=== PATIENT | male | born 1965 | race Caucasian/White ===

== ENCOUNTER 2018-01-16 10:54 | Emergency (ER) | payer BC ==
[2018-01-16] MEDS ORDERED: Sodium Chloride 0.9% 1,000 ML IV ONE (11:21)
[2018-01-16] MEDS ORDERED: Ketorolac 30 MG/ML SDV IVPUSH ONE (11:21)
[2018-01-16] MEDS ORDERED: Sodium Chloride 0.9% 10 ML Syringe FLUSH PRN (11:21)
[2018-01-16] MEDS ORDERED: Morphine 2 MG/ML Syringe IVPUSH ONE (11:21)
[2018-01-16] MEDS ORDERED: Sodium Chloride 0.9% 2.5 ML Syringe FLUSH PRN (11:21)
--- NOTE | 2018-01-16 11:31 | EDM.PDOC ---
ED HPI GENERAL MEDICAL PROBLEM - General Chief Complaint: Flank Pain Stated Complaint: LOW BACK PAIN Time Seen by Provider: 01/16/18 10:59 - History of Present Illness INITIAL COMMENTS - FREE TEXT/NARRATIVE: HISTORY AND PHYSICAL: History of present illness: The patient is a 52-year-old male who presents with complaints of right flank pain that started gradually this morning in a spasm-like fashion and is now continuous. Pain is located at his right lower back and does not radiate to his abdomen and he has no nausea or vomiting no hematuria dysuria or frequency. The patient says that he had a kidney stone on the right about a month ago that he was diagnosed with any passed spontaneously and this does feels similarly but the pain is worse. He's had no trauma to the area the pain does not radiate to his leg and he has no midline back pain. The patient says that he did not follow -up with a urologist. He did not take anything at home for the pain. He is currently not nauseated and has had no fevers chills chest pain or shortness of breath. He says the pain did not come on suddenly but it was gradual and then went away and then has spasmed in presentation and is now constant. He feels the pain is very deep. He has no testicular pain or swelling. The patient says he has a history of drinking a lot of soda in the past but has cut back significantly since the last kidney stone one month ago Review of systems: As per history of present illness and below otherwise all systems reviewed and negative. Past medical history: As per history of present illness and as reviewed below otherwise noncontributory. Surgical history: As per history of present illness and as reviewed below otherwise noncontributory. Social history: No reported history of drug or alcohol abuse. Family history: As per history of present illness and as reviewed below otherwise noncontributory. Physical exam: General: Well-developed well-nourished man who is nontoxic and vital signs are noted by me. He moves easily in the ED HEENT: Atraumatic, normocephalic, negative for conjunctival pallor or scleral icterus, mucous membranes moist, throat clear, neck supple, nontender, trachea midline. Lungs: Clear to auscultation, breath sounds equal bilaterally, chest nontender. Heart: S1S2, regular rate and rhythm no overt murmurs Abdomen: Soft, nondistended, nontender. Negative for masses or hepatosplenomegaly. Negative for costovertebral tenderness. His absolute no tenderness on palpation of the abdomen and I cannot reproduce the pain. Bowel sounds are hypoactive. Pelvis: Stable nontender. Genitourinary: Deferred. Rectal: Deferred. Extremities: Atraumatic, negative for cords or calf pain. Neurovascular unremarkable. Neuro: Awake, alert, oriented. Cranial nerves II through XII unremarkable. Cerebellum unremarkable. Motor and sensory unremarkable throughout. Exam nonfocal. Back: There are no midline step-offs tenderness or defects of the thoracic or lumbar spine no CVA tenderness and on palpation of the paraspinal musculature at the right lumbar and flank area I cannot reproduce the pain. 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 Remainder of his CT just shows that he is constipated which he is aware of. He seems somewhat annoyed with the test results but I will give him referral for primary care and urology to have further evaluation of this cystic mass on the left kidney. I told him that this may be musculoskeletal and that he can follow up with primary care. Impression: Right flank pain stable etiology unclear Definitive disposition and diagnosis as appropriate pending reevaluation and review of above. Right Flank Pain Score (Numeric/FACES): 8 - Related Data Allergies Allergy/AdvReac Type Severity Reaction Status Date / Time No Known Allergies Allergy Verified 01/16/18 11:09 Home Meds: Home Meds Cilostazol 100 mg PO BID 01/16/18 [History] Metoprolol Succinate 25 mg PO BID 01/16/18 [History] Simvastatin 10 mg PO DAILY 01/16/18 [History] Past Medical History Cardiovascular History: Reports: Blood Clots/VTE/DVT, High Cholesterol, Hypertension - Infectious Disease History Infectious Disease History: Reports: Chicken Pox Social & Family History - Family History Family Medical History: Noncontributory - Tobacco Use Smoking Status *Q: Former Smoker Used Tobacco, but Quit: Yes Month/Year Tobacco Last Used: 5 - Recreational Drug Use Recreational Drug Use: No ED ROS GENERAL - Review of Systems Review Of Systems: ROS reveals no pertinent complaints other than HPI. ED EXAM, GENERAL - Physical Exam Exam: See Below (see Dictation) Course - Vital Signs Last Recorded V/S: Last Vital Signs Temp 35.9 C 01/16/18 12:29 Pulse 66 01/16/18 12:29 Resp 16 01/16/18 12:29 BP 146/75 H 01/16/18 12:29 Pulse Ox 97 01/16/18 12:29 - Orders/Labs/Meds Orders: Active Orders 24 hr Category Date Time Status Abdomen Pelvis wo Cont [CT] Stat Exams 01/16/18 11:21 Taken CULTURE URINE [RM] Stat Lab 01/16/18 12:15 Ordered UA W/MICROSCOPIC [URIN] Stat Lab 01/16/18 12:15 Ordered Sodium Chloride 0.9% [Saline Flush] Med 01/16/18 11:21 Active 10 ml FLUSH ASDIRECTED PRN Sodium Chloride 0.9% [Saline Flush] Med 01/16/18 11:21 Active 2.5 ml FLUSH ASDIRECTED PRN Saline Lock Insert [OM.PC] Stat Oth 01/16/18 11:20 Ordered Medication Orders Sodium Chloride (Saline Flush) 10 ml FLUSH ASDIRECTED PRN PRN Reason: Keep Vein Open Sodium Chloride (Saline Flush) 2.5 ml FLUSH ASDIRECTED PRN PRN Reason: Keep Vein Open Labs: Laboratory Tests 01/16/18 01/16/18 01/16/18 Range/Units 11:35 11:35 12:15 WBC 9.39 (4.0-11.0) K/uL RBC 4.42 L (4.50-5.90) M/uL Hgb 13.9 (13.0-17.0) g/dL Hct 39.7 (38.0-50.0) % MCV 89.8 (80.0-98.0) fL MCH 31.4 (27.0-32.0) pg MCHC 35.0 (31.0-37.0) g/dL RDW Std Deviation 41.1 (28.0-62.0) fl RDW Coeff of Hailey 13 (11.0-15.0) % Plt Count 279 (150-400) K/uL MPV 9.90 (7.40-12.00) fL Neut % (Auto) 55.7 (48.0-80.0) % Lymph % (Auto) 30.8 (16.0-40.0) % [place]ff[place] % (Auto) 8.1 (0.0-15.0) % Eos % (Auto) 4.3 (0.0-7.0) % Baso % (Auto) 1.1 (0.0-1.5) % Neut # (Auto) 5.2 (1.4-5.7) K/uL Lymph # (Auto) 2.9 H (0.6-2.4) K/uL [place]ffie # (Auto) 0.8 (0.0-0.8) K/uL Eos # (Auto) 0.4 (0.0-0.7) K/uL Baso # (Auto) 0.1 (0.0-0.1) K/uL Nucleated RBC % 0.0 /100WBC Nucleated RBCs # 0 K/uL Sodium 136 (136-148) mmol/L Potassium 4.0 (3.5-5.1) mmol/L Chloride 103 (98-107) mmol/L Carbon Dioxide 26.6 (21.0-32.0) mmol/L BUN 16 (7.0-18.0) mg/dL Creatinine 1.2 (0.8-1.3) mg/dL Est Cr Clr Drug Dosing 64.98 mL/min Estimated GFR (MDRD) > 60.0 ml/min Glucose 94 (74-106) mg/dL Calcium 9.2 (8.5-10.1) mg/dL Total Bilirubin 0.3 (0.2-1.0) mg/dL AST 39 H (15-37) IU/L ALT 58 (14-63) IU/L Alkaline Phosphatase 98 (46-116) U/L Total Protein 8.5 H (6.4-8.2) g/dL Albumin 3.8 (3.4-5.0) g/dL Globulin 4.7 H (2.0-3.5) g/dL Albumin/Globulin Ratio 0.8 L (1.3-2.8) Urine Color YELLOW Urine Appearance CLEAR Urine pH 5.5 (5.0-8.0) Ur Specific [place] >= 1.030 (1.001-1.035) Urine Protein NEGATIVE (NEGATIVE) mg/dL Urine Glucose (UA) NEGATIVE (NEGATIVE) mg/dL Urine Ketones NEGATIVE (NEGATIVE) mg/dL Urine Occult Blood NEGATIVE (NEGATIVE) Urine Nitrite NEGATIVE (NEGATIVE) Urine Bilirubin NEGATIVE (NEGATIVE) Urine Urobilinogen 0.2 (<2.0) EU/dL Ur Leukocyte Esterase NEGATIVE (NEGATIVE) Urine RBC 0-1 (0-2/HPF) Urine WBC 0-1 (0-5/HPF) Ur Epithelial Cells RARE (NONE-FEW) Urine Bacteria RARE (NEGATIVE) Meds: Medications Generic Name Dose Route Start Last Admin Trade Name Freq PRN Reason Stop Dose Admin Sodium Chloride 10 ml 01/16/18 11:21 Saline Flush FLUSH ASDIRECTED PRN Keep Vein Open Sodium Chloride 2.5 ml 01/16/18 11:21 Saline Flush FLUSH ASDIRECTED PRN Keep Vein Open Discontinued Medications Generic Name Dose Route Start Last Admin Trade Name Freq PRN Reason Stop Dose Admin Sodium Chloride 1,000 mls @ 999 mls/hr 01/16/18 11:21 01/16/18 11:43 Normal Saline IV 01/16/18 12:21 999 mls/hr STAT ONE Administration Ketorolac Tromethamine 30 mg 01/16/18 11:21 01/16/18 11:44 Toradol IVPUSH 01/16/18 11:22 30 mg ONETIME ONE Administration Morphine Sulfate 2 mg 01/16/18 11:21 01/16/18 11:44 Morphine IVPUSH 01/16/18 11:22 2 mg ONETIME ONE Administration Departure - Departure Time of Disposition: 13:37 Disposition: Home, Self-Care 01 Condition: Good Clinical Impression: Right flank pain, Cyst of left kidney - Discharge Information Referrals: PCP,None [Primary Care Provider] - Forms: ED Department Discharge Additional Instructions: The following information is given to patients seen in the emergency department who are being discharged to home. This information is to outline your options for follow-up care. We provide all patients seen in our emergency department with a follow-up referral. The need for follow-up, as well as the timing and circumstances, are variable depending upon the specifics of your emergency department visit. If you don't have a primary care physician on staff, we will provide you with a referral. We always advise you to contact your personal physician following an emergency department visit to inform them of the circumstance of the visit and for follow-up with them and/or the need for any referrals to a consulting specialist. The emergency department will also refer you to a specialist when appropriate. This referral assures that you have the opportunity for followup care with a specialist. All of these measure are taken in an effort to provide you with optimal care, which includes your followup. Under all circumstances we always encourage you to contact your private physician who remains a resource for coordinating your care. When calling for followup care, please make the office aware that this follow-up is from your recent emergency room visit. If for any reason you are refused follow-up, please contact the [facility] emergency department at and ask to speak to the emergency department charge nurse. [facility] Primary care- Internal Medicine and [facility] [address] [place] [phone] [facility] Specialty Care-Urology [address] [place] [phone] Push hydration and use medication as needed and directed for pain. Please call and schedule a follow-up appointment as you will need an outpatient ultrasound of your left kidney to follow the cysts that are there. Return to ER as needed and as discussed. - My Orders Last 24 Hours: My Active Orders 01/16/18 11:20 Saline Lock Insert [OM.PC] Stat 01/16/18 11:21 Abdomen Pelvis wo Cont [CT] Stat Sodium Chloride 0.9% [Saline Flush] 10 ml FLUSH ASDIRECTED PRN Sodium Chloride 0.9% [Saline Flush] 2.5 ml FLUSH ASDIRECTED PRN 01/16/18 12:15 CULTURE URINE [RM] Stat UA W/MICROSCOPIC [URIN] Stat - Assessment/Plan Last 24 Hours: My Active Orders 01/16/18 11:20 Saline Lock Insert [OM.PC] Stat 01/16/18 11:21 Abdomen Pelvis wo Cont [CT] Stat Sodium Chloride 0.9% [Saline Flush] 10 ml FLUSH ASDIRECTED PRN Sodium Chloride 0.9% [Saline Flush] 2.5 ml FLUSH ASDIRECTED PRN 01/16/18 12:15 CULTURE URINE [RM] Stat UA W/MICROSCOPIC [URIN] Stat
[2018-01-16 12:19] LABS: CHLORIDE,CL 103 mmol/L (98-107); SODIUM,NA 136 mmol/L (136-148)
--- NOTE | 2018-01-16 16:30 | CT ---
EXAM DATE: 01/16/18 PATIENT'S AGE: 52 Patient: LOU SMALL Facility: [place], [place] Site . Site : [id number] Study: CT Abdomen/Pelvis [id number]/[id number] 12:43:08 PM Ordering Physician: Venita Skelton Final Report: INDICATION: Right flank pain. COMPARISON: None. TECHNIQUE: CT abdomen and pelvis without intravenous or oral contrast; coronal and sagittal reformats. FINDINGS: No abnormal intra pulmonary nodular densities through the lung bases. No evidence of pleural effusion. Normal size cardiac silhouette without any evidence of pericardial effusion. No focal hepatic or splenic pathology. No pancreatic pathology. Gallbladder is unremarkable. No adrenal pathology. The right kidney is located in its normal location without any evidence of obstructive uropathy or perinephric pathology. No kidneys stones involving the right kidney . Left kidney is in ectopic location in the left pelvis. 5.5 x 4.4 cm cystic mass lower pole left kidney most likely represents a benign cyst. Normal appendix. Copious amounts of retained stool throughout the colon. Redundant sigmoid colon. Diverticulosis sigmoid colon without any CT evidence of diverticulitis or abscess. No pneumoperitoneum. No evidence of intestinal obstruction. IMPRESSION: 1. 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 2. 5.5 x 4.4 cm cystic mass lower pole left kidney most likely represents a cyst ; pelvic ultrasound to assess the cystic mass further is suggested . 3. Normal appendix. 4. No kidney stones or obstructive uropathy. 5. Diverticulosis sigmoid colon without any CT evidence of diverticulitis or abscess. 6. Copious amounts of retained stool in the colon. Please note that all CT scans at this facility use dose modulation, iterative reconstruction, and/or weight-based dosing when appropriate to reduce radiation dose to as low as reasonably achievable. Dictated by Adelaida Cloud MD @ Jan 16 2018 1:06PM (Electronic Signature) Report Signed by Proxy. [email or web address]
== END 2018-01-16 14:00 | disposition home or self-care (01) ==
LOC: MW.ED 10:54
DX: N28.1 Cyst of kidney, acquired (principal); Z87.891 Personal history of nicotine dependence; Z79.899 Other long term (current) drug therapy
CPT/HCPCS: 36415; 74176; 80053; 81001; 85025; 87086; 96361; 96374; 96375; 99284; J1885; J2270; J7040; 99283

== ENCOUNTER 2021-04-03 06:16 | Emergency (ER) | payer BC ==
[2021-04-03] MEDS ORDERED: Sodium Chloride 0.9% 10 ML Syringe FLUSH PRN (07:08)
[2021-04-03] MEDS ORDERED: Sodium Chloride 0.9% 2.5 ML Syringe FLUSH PRN (07:08)
[2021-04-03] MEDS ORDERED: Morphine 4 MG/ML VIAL IVPUSH ONE (07:09)
[2021-04-03] MEDS ORDERED: Ondansetron 4 MG/2 ML SDV IVPUSH ONE (07:09)
--- NOTE | 2021-04-03 07:16 | EDM.PDOC ---
ED HPI GENERAL MEDICAL PROBLEM - General Chief Complaint: Abdominal Pain Stated Complaint: PAIN R SIDE ABOVE GROIN Time Seen by Provider: 04/03/21 07:00 - History of Present Illness INITIAL COMMENTS - FREE TEXT/NARRATIVE: 55-year-old male history of vascular disease with multiple lower extremity and pelvic stents in the past per patient presenting with intermittent severe right lower quadrant abdominal pain. Patient states that twice last night he had sudden and sharp nonradiating right lower quadrant pain that came and went after a few seconds and was without clear trigger radiation. This morning he had a much more severe episode that brought him to his knees because of its severity. No nausea or vomiting no change in stools no fever. Patient has no significant pain when laying in the bed. He has no leg pain. Right Lower Abdomen Pain Score (Numeric/FACES): 7 - Related Data Allergies Allergy/AdvReac Type Severity Reaction Status Date / Time No Known Allergies Allergy Verified 04/03/21 06:40 Home Meds: Home Meds Metoprolol Succinate 25 mg PO BID 01/16/18 [History] cilostazoL [Cilostazol] 100 mg PO BID 01/16/18 [History] Past Medical History Cardiovascular History: Reports: Blood Clots/VTE/DVT, High Cholesterol, Hypertension - Infectious Disease History Infectious Disease History: Reports: Chicken Pox Social & Family History - Family History Family Medical History: No Pertinent Family History - Recreational Drug Use Recreational Drug Use: No ED ROS GENERAL - Review of Systems Review Of Systems: See Below Free Text/Narrative/Comment: General: No fever. Skin: No rash. Eyes: No vision problems. ENT: No sore throat. Neck: No neck stiffness. Respiratory: No shortness of breath. Cardiac: No chest pain. Gastrointestinal: Per HPI Urinary: No dysuria. Musculoskeletal: No myalgias/arthralgias. Neurologic: No headache. ED EXAM, GENERAL - Physical Exam Exam: See Below Free Text/Narrative:: General Appearance: No acute distress, appears comfortable Skin: No rash HEENT: Normocephalic/atraumatic, sclera anicteric, mucous membranes moist Neck: Normal range of motion Chest and Lungs: Bilateral breath sounds, clear to auscultation Cardiovascular: Regular rate and rhythm Abdomen: Soft, significant right lower quadrant tenderness without guarding or rebound Musculoskeletal: No edema or tenderness Neurologic: Awake, alert, no obvious deficits, moving all extremities Psychiatric: Appropriate, cooperative Course - Vital Signs Last Recorded V/S: Last Vital Signs Temp 96.7 F L 04/03/21 06:41 Pulse 68 04/03/21 07:09 Resp 15 04/03/21 07:09 BP 141/85 H 04/03/21 07:09 Pulse Ox 96 04/03/21 07:09 - Orders/Labs/Meds Orders: Active Orders 24 hr Category Date Time Status Ketorolac [Toradol] Med 04/03/21 09:46 Once 15 mg IVPUSH ONETIME ONE Sodium Chloride 0.9% [Saline Flush] Med 04/03/21 07:08 Active 10 ml FLUSH ASDIRECTED PRN Sodium Chloride 0.9% [Saline Flush] Med 04/03/21 07:08 Active 2.5 ml FLUSH ASDIRECTED PRN Saline Lock Insert [OM.PC] Stat Oth 04/03/21 07:08 Ordered Medication Orders Sodium Chloride (Sodium Chloride 0.9% 10 Ml Syringe) 10 ml FLUSH ASDIRECTED PRN PRN Reason: Keep Vein Open Last Admin: 04/03/21 07:28 Dose: 10 ml Documented by: LENORE Sodium Chloride (Sodium Chloride 0.9% 2.5 Ml Syringe) 2.5 ml FLUSH ASDIRECTED PRN PRN Reason: Keep Vein Open Last Admin: 04/03/21 07:28 Dose: 2.5 ml Documented by: LENORE Labs: Laboratory Tests 04/03/21 04/03/21 04/03/21 Range/Units 07:20 07:20 07:21 WBC 7.22 (4.0-11.0) K/uL RBC 4.75 (4.50-5.90) M/uL Hgb 15.5 (13.0-17.0) g/dL Hct 45.0 (38.0-50.0) % MCV 94.7 (80.0-98.0) fL MCH 32.6 H (27.0-32.0) pg MCHC 34.4 (31.0-37.0) g/dL RDW Std Deviation 45.1 (28.0-62.0) fl RDW Coeff of [place]iley 13 (11.0-15.0) % Plt Count 209 (150-400) K/uL MPV 10.90 (7.40-12.00) fL Neut % (Auto) 53.8 (48.0-80.0) % Lymph % (Auto) 31.0 (16.0-40.0) % [place] % (Auto) 9.1 (0.0-15.0) % Eos % (Auto) 4.6 (0.0-7.0) % Baso % (Auto) 1.5 (0.0-1.5) % Neut # (Auto) 3.9 (1.4-5.7) K/uL Lymph # (Auto) 2.2 (0.6-2.4) K/uL [place] # (Auto) 0.7 (0.0-0.8) K/uL Eos # (Auto) 0.3 (0.0-0.7) K/uL Baso # (Auto) 0.1 (0.0-0.1) K/uL Nucleated RBC % 0.0 /100WBC Nucleated RBCs # 0 K/uL Sodium 136 (136-148) mmol/L Potassium 3.9 (3.5-5.1) mmol/L Chloride 101 (98-107) mmol/L Carbon Dioxide 25.1 (21.0-32.0) mmol/L BUN 13 (7.0-18.0) mg/dL Creatinine 1.2 (0.8-1.3) mg/dL Est Cr Clr Drug Dosing 62.77 mL/min Estimated GFR (MDRD) > 60.0 ml/min Glucose 105 (74-106) mg/dL Calcium 8.7 (8.5-10.1) mg/dL Total Bilirubin 0.6 (0.2-1.0) mg/dL AST 48 H (15-37) IU/L ALT 76 H (14-63) IU/L Alkaline Phosphatase 105 (46-116) U/L Total Protein 8.5 H (6.4-8.2) g/dL Albumin 3.3 L (3.4-5.0) g/dL Globulin 5.2 H (2.6-4.0) g/dL Albumin/Globulin Ratio 0.6 L (0.9-1.6) Lipase 42 L (73-393) U/L Urine Color YELLOW Urine Appearance CLEAR Urine pH 6.0 (5.0-8.0) Ur Specific [place] >= 1.030 (1.001-1.035) Urine Protein NEGATIVE (NEGATIVE) mg/dL Urine Glucose (UA) NEGATIVE (NEGATIVE) mg/dL Urine Ketones NEGATIVE (NEGATIVE) mg/dL Urine Occult Blood NEGATIVE (NEGATIVE) Urine Nitrite NEGATIVE (NEGATIVE) Urine Bilirubin NEGATIVE (NEGATIVE) Urine Urobilinogen 1.0 (<2.0) EU/dL Ur Leukocyte Esterase NEGATIVE (NEGATIVE) Urine RBC NONE SEEN (0-2/HPF) Urine WBC 0-1 (0-5/HPF) Ur Epithelial Cells OCCASIONAL (NONE-FEW) Urine Bacteria FEW (NEGATIVE) Urine Mucus LIGHT (NONE-MOD) Meds: Medications Generic Name Dose Route Start Last Admin Trade Name Freq PRN Reason Stop Dose Admin Sodium Chloride 10 ml 04/03/21 07:08 04/03/21 07:28 Sodium Chloride 0.9% 10 Ml Syringe FLUSH 10 ml ASDIRECTED PRN Administration Keep Vein Open Sodium Chloride 2.5 ml 04/03/21 07:08 04/03/21 07:28 Sodium Chloride 0.9% 2.5 Ml Syringe FLUSH 2.5 ml ASDIRECTED PRN Administration Keep Vein Open Discontinued Medications Generic Name Dose Route Start Last Admin Trade Name Freq PRN Reason Stop Dose Admin Iopamidol 100 ml 04/03/21 08:40 04/03/21 08:40 Iopamidol 755 Mg/Ml 500 Ml Multipack Bottle IVPUSH 04/03/21 08:41 100 ml ONETIME ONE Administration Morphine Sulfate 4 mg 04/03/21 07:09 04/03/21 07:27 Morphine 4 Mg/Ml Vial IVPUSH 04/03/21 07:10 4 mg ONETIME ONE Administration Ondansetron HCl 4 mg 04/03/21 07:09 04/03/21 07:27 Ondansetron 4 Mg/2 Ml Sdv IVPUSH 04/03/21 07:10 4 mg ONETIME ONE Administration Departure - Departure Time of Disposition: 09:47 Disposition: Home, Self-Care 01 Condition: Good Clinical Impression: Enteritis - Discharge Information *PRESCRIPTION DRUG MONITORING PROGRAM REVIEWED*: Not Applicable *COPY OF PRESCRIPTION DRUG MONITORING REPORT IN PATIENT MEHDI: Not Applicable Instructions: Abdominal Pain, Adult, [id number] Referrals: PCP,None [Primary Care Provider] - Forms: ED Department Discharge Additional Instructions: Your ultrasound showed good blood flow in your right leg and there were no signs that any of the stents are blocked off. Your labs were normal your CT scan showed an extensive amount of fluid in stool in your small intestine and colon that can sometimes indicate an enteritis. If this is true you may have some cramping abdominal pain over the next several hours you may have some diarrhea as well. However your symptoms should relatively rapidly resolved. If your symptoms worsen or you have any other new symptoms that concern you please call your doctor or return to the ER. Otherwise please be sure to follow-up with yo ur primary doctor. If you do not have a primary care doctor you can follow-up at one of the primary clinics listed below. [facility] [address] [place] [address] [id number] The following information is given to patients seen in the emergency department who are being discharged to home. This information is to outline your options for follow-up care. We provide all patients seen in our emergency department with a follow-up referral. The need for follow-up, as well as the timing and circumstances, are variable depending upon the specifics of your emergency department visit. If you don't have a primary care physician on staff, we will provide you with a referral. We always advise you to contact your personal physician following an emergency department visit to inform them of the circumstance of the visit and for follow-up with them and/or the need for any referrals to a consulting specialist. The emergency department will also refer you to a specialist when appropriate. This referral assures that you have the opportunity for follow-up care with a specialist. All of these measure are taken in an effort to provide you with optimal care, which includes your follow-up. Under all circumstances we always encourage you to contact your private physician who remains a resource for coordinating your care. When calling for follow-up care, please make the office aware that this follow-up is from your recent emergency room visit. If for any reason you are refused follow-up, please contact the [facility] Department at and asked to speak to the emergency department charge nurse. Sepsis Event Note (ED) - Evaluation Sepsis Screening Result: No Definite Risk - Focused Exam Vital Signs: Vital Signs Temp Pulse Resp BP Pulse Ox 04/03/21 07:09 68 15 141/85 H 96 04/03/21 06:41 96.7 F L 70 16 139/76 95 - My Orders Last 24 Hours: My Active Orders 04/03/21 07:08 Sodium Chloride 0.9% [Saline Flush] 10 ml FLUSH ASDIRECTED PRN Sodium Chloride 0.9% [Saline Flush] 2.5 ml FLUSH ASDIRECTED PRN Saline Lock Insert [OM.PC] Stat 04/03/21 09:46 Ketorolac [Toradol] 15 mg IVPUSH ONETIME ONE - Assessment/Plan Last 24 Hours: My Active Orders 04/03/21 07:08 Sodium Chloride 0.9% [Saline Flush] 10 ml FLUSH ASDIRECTED PRN Sodium Chloride 0.9% [Saline Flush] 2.5 ml FLUSH ASDIRECTED PRN Saline Lock Insert [OM.PC] Stat 04/03/21 09:46 Ketorolac [Toradol] 15 mg IVPUSH ONETIME ONE Assessment:: 55-year-old male presenting with intermittent severe right lower quadrant abdominal pain. Patient is significant tenderness on exam but abdomen generally soft and without peritonitis. Patient expressed some concern about his vascular stents. The patient has no pain in his legs given this and the lack of any persistent pain acute vascular occlusions felt very unlikely. Appendicitis is possible diverticulitis is possible renal colic certainly possible given the intermittent nature of the pain. Though the significant tenderness in the right lower quadrant be somewhat atypical for this. CBC, CMP, lipase, urinalysis, CT abdomen pelvis pending. Morphine Zofran for symptoms and will reassess. Testicular pathology considered but patient has no testicular pain and has significant tenderness in the right lower quadrant making this less likely. 0945: Patient's labs are unremarkable very minimal transaminitis not felt to be clinically significant. Patient has excellent PT and DP pulses in the right lower extremity no findings that would suggest acute stent occlusion. CT scan shows some findings of enteritis but no other acute process. Patient with minimal symptoms at this time abdomen is not peritoneal take vital signs are good patient felt stable for discharge strict return precautions discussed and understood.
[2021-04-03 08:09] LABS: BLOOD UREA NITROGEN,BUN 13 mg/dL (7.0-18.0); CARBON DIOXIDE,CO2 25.1 mmol/L (21.0-32.0); CHLORIDE,CL 101 mmol/L (98-107); GLUCOSE RANDOM 105 mg/dL (74-106); LIPASE 42 U/L (73-393); POTASSIUM,K 3.9 mmol/L (3.5-5.1); SODIUM,NA 136 mmol/L (136-148)
[2021-04-03] MEDS ORDERED: Iopamidol 755 MG/ML 500 ML Multipack Bottle IVPUSH ONE (08:40)
--- NOTE | 2021-04-03 09:01 | CT ---
Indication: Right lower quadrant pain and tenderness Technique: Volumetric multidetector CT images of the abdomen and pelvis were obtained after the administration of intravenous contrast. 100 cc Isovue 370 low osmolar intravenous contrast Comparison: CT abdomen and pelvis January 16, 2018 Findings: There is dependent bibasilar atelectasis versus scar. The liver is normal in attenuation without intrahepatic biliary ductal dilatation. The portal vein is patent. The gallbladder is unremarkable without evidence of radiopaque calculus. There is mild intrahepatic and common biliary ductal dilatation. The spleen is normal in enhancement and size. There is mild nonspecific thickening of the gastric antrum commensurate with chronic gastritis changes. There is mild pancreatic atrophy. The adrenal glands are unremarkable. Again seen is a left pelvic kidney with cystic changes. There is no evidence of obstructive uropathy or abnormal corticomedullary differentiation. There is a moderate amount of stool seen throughout the colon with minimal distal colonic diverticulosis. There are scattered, nonspecific fluid containing loops of nonspecific small-bowel commensurate with mild enteritis changes. The appendix is unremarkable. There is no significant mesenteric, retroperitoneal, or pelvic sidewall lymph nodes. The aorta is nonaneurysmal. There is no significant atherosclerotic disease appreciated. The solid pelvic viscera are grossly unremarkable. There is no free fluid or free air. The anterior abdominal wall is intact without significant hernias. The lumbar vertebral body heights are grossly maintained with minimal retrolisthesis of L4 on L5. Impression: Normal appendix. Scattered mild fluid throughout the small bowel which may represent minimal enteritis change. Stable appearance of left-sided pelvic kidney and cystic changes. Mild nonspecific thickening of the bladder can be appreciated which may represent mild nonspecific cystitis changes. No evidence of obstructing uropathy. Sequela of chronic gastritis. Hepatomegaly and hepatic steatosis. Please note that all CT scans at this facility use dose modulation, iterative reconstruction, and/or weight-based dosing when appropriate to reduce radiation dose to as low as reasonably achievable. Dictated by Kolby Lynn MD @ 04/03/2021 8:59:48 AM (Electronically Signed)
[2021-04-03] MEDS ORDERED: Ketorolac 30 MG/ML SDV IVPUSH ONE (09:46)
[2021-04-03] MEDS ORDERED: Nicotine 14 MG/24 Hr Patch TRDERM ONE (10:08)
== END 2021-04-03 10:29 | disposition home or self-care (01) ==
LOC: MW.ED 06:16
DX: K52.9 Noninfective gastroenteritis and colitis, unspecified (principal); I10 Essential (primary) hypertension; Z79.899 Other long term (current) drug therapy
CPT/HCPCS: 36415; 74177; 80053; 81001; 83690; 85025; 96374; 96375; 99284; A9270; J1885; J2270; J2405; Q9967